=== PATIENT | female | born 1985 | race Hispanic/Latino ===

== ENCOUNTER 2022-01-13 05:35 | Emergency (ER) | payer BC ==
[2022-01-13 06:40] LABS: Absolute Lymphocytes (CBC) 1.8 K/uL (0.7-4.9); Hematocrit 35.5 % (36.0-45.0); Lymphocytes % 20.6 % (15.3-44.8); MCV 87.6 fL (80-100); MPV 7.2 fL (7.6-11.3); RBC Red Blood Cell Count 4.05 M/uL (3.86-4.86)
[2022-01-13] MEDS ORDERED: NA CHLORIDE 0.9% 1,000 ML ONE (06:43)
[2022-01-13] MEDS ORDERED: CEFTRIAXONE 1000 MG/VIAL ONE (06:43)
[2022-01-13] MEDS ORDERED: KETOROLAC 30 MG/ML INJ ONE (06:43)
[2022-01-13] MEDS ORDERED: MORPHINE 4 MG/ML SYR ONE ×2 (06:43→09:32)
[2022-01-13] MEDS ORDERED: ONDANSETRON 4 MG/2 ML VIAL ONE ×2 (06:43→09:33)
[2022-01-13] MEDS ORDERED: NA CHLORIDE 0.9% 50 ML ONE (06:44)
[2022-01-13 06:59] LABS: Albumin 3.1 g/dL (3.4-5.0); Bilirubin Total 0.2 mg/dL (0.2-1.0); Potassium 3.7 mmol/L (3.5-5.1); Protein, Total 6.9 g/dL (6.4-8.2)
[2022-01-13] MEDS ORDERED: levoFLOXacin 250 MG TAB ONE (07:22)
[2022-01-13 07:50] LABS: Urine Blood 2+ (Negative); Urine Glucose Negative (Negative); Urine Protein Negative (Negative); Urine pH 5.5 (5.0-7.0)
[2022-01-13 08:10] LABS: Urine Bacteria <20 /HPF (<20)
--- NOTE | 2022-01-13 08:33 | RAD REPORT ---
EXAM DESCRIPTION: CT - Abdomen Pelvis W Contrast - 01/13/2022 7:58 am CLINICAL HISTORY: Flank pain, kidney stone suspected COMPARISON: No comparisons TECHNIQUE: Biphasic, helical CT imaging of the abdomen and pelvis was performed following 100 ml non -ionic IV contrast. No oral contrast administered. All CT scans are performed using dose optimization technique as appropriate and may include automated exposure control or mA/KV adjustment according to patient size. FINDINGS: No suspicious findings in the lung bases. The liver, spleen, and pancreas show no suspicious focal findings. Liver shows a diffuse fatty infilt ration pattern. Cholecystectomy clips are present with no biliary tree dilatation. Renal function is symmetric and without evidence for delay. No pyelonephritis or acute renal parenchy mal process seen. There is fullness of the left renal pelvis without ureter or calyx dilatation. No r enal parenchymal calculi. No calcifications in the proximal collecting systems. There is a 5 millimet er calcification along the floor the pelvis that is suspected to be a right UVJ stone or possible kevin dder calculus near the right UVJ. Pelvic floor detail is limited due to body habitus affects. If this is a calculus, it does not cause any delayed or asymmetric renal function. No other possible blad viri finding seen. No adrenal abnormalities. IUD is in place. No uterine abnormality or ovarian abnormality seen. No dilated bowel loops or bowel wall thickening. Appendix is not clearly defined. No evidence for gee endicitis. No free air, free fluid or inflammatory stranding. No mass or bulky lymphadenopathy. Liliam ent has a 6 centimeter diameter ventral hernia just superior to the umbilicus along with a 6 centimet er periumbilical hernia. The hernias contain only fat. No congested or edematous fat seen. No bowel i n proximity to the hernias. No suspicious bony findings. IMPRESSION: A 5 millimeter calcification is present along the floor the pelvis suspected to be right UVJ/bladder calculus. There is no right-sided hydronephrosis. If the 5 mm calcification is a true calculus, there is no resulting delayed or asymmetric function of the right kidney. Diffuse fatty infiltration of the liver with no focal liver abnormality. Cholecystectomy clips are pr esent with no biliary tree dilatation. Periumbilical and supraumbilical fat only hernias are present with no congested or edematous fat.
--- NOTE | 2022-01-13 09:21 | ER ---
Nurse's Notes [facility] Name: Maria Teresa Douglas Age: 37 yrs Sex: Female : 1985 Arrival Date: 01/13/2022 Time: 05:38 Bed 16 Private MD: Diagnosis: Obesity, unspecified;Unspecified symptoms and signs involving the musculoskeletal system;Dysuria;Low back pain Presentation: 01/13 05:41 Chief complaint: EMS states: Noticed back pain that started 3 days ago after ke1 metronidazole prescription for vaginitis. Coronavirus screen: Vaccine status: Patient reports receiving the 2nd dose of the covid vaccine. Ebola Screen: No symptoms or risks identified at this time. 05:41 Method Of Arrival: EMS ke1 05:47 Initial Sepsis Screen: Does the patient meet any 2 criteria? No. Patient's initial ke1 sepsis screen is negative. Does the patient have a suspected source of infection? No. Patient's initial sepsis screen is negative. Risk Assessment: Do you want to hurt yourself or someone else? Patient reports no desire to harm self or others. Onset of symptoms. 05:47 Acuity: ORTIZ 3 ke1 Triage Assessment: 05:51 General: Appears in no apparent distress. Behavior is calm, appropriate for age. Pain: ke1 Complains of pain in Left flank. GI: Abdomen is obese. Musculoskeletal: Circulation, motion, and sensation intact. Capillary refill < 3 seconds. 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 - Social history:: Smoking status: Reported history of juuling and/or vaping. - Family history:: not pertinent. Screenin:50 Abuse screen: Denies threats or abuse. Nutritional screening: No deficits noted. ke1 Tuberculosis screening: No symptoms or risk factors identified. Fall Risk No fall in past 12 months (0 pts). No secondary diagnosis (0 pts). No IV (0 pts). Ambulatory Aid- None/Bed Rest/Nurse Assist (0 pts). Gait- Normal/Bed Rest/Wheelchair (0 pts) Mental Status- Oriented to own ability (0 pts). Total Bess Fall Scale indicates No Risk (0-24 pts). Assessment: 06:36 Neuro: Level of Consciousness is awake, alert, Oriented to person, place, time, ke1 situation. Respiratory: Respiratory effort is even, unlabored, Respiratory pattern is regular, symmetrical. 07:26 Reassessment: No changes from previously documented assessment. 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 08:54 Reassessment: No changes from previously documented assessment. Patient and/or family kr3 updated on plan of care and expected duration. Pain level reassessed. 09:44 Reassessment: No changes from previously documented assessment. Patient and/or family kr3 updated on plan of care and expected duration. Pain level reassessed. 10:12 Reassessment: No changes from previously documented assessment. Patient states feeling kr3 better. Vital Signs: 05:47 BP 130 / 68; Pulse 98; Resp 16; Temp 98.6(O); Pulse Ox 96% on R/A; Weight 161.03 kg; ke1 Height 5 ft. 2 in. (157.48 cm); Pain 8/10; 07:42 BP 126 / 68; Pulse 90; Resp 17; Pulse Ox 96% on R/A; ll1 08:52 BP 100 / 60; Pulse 89; Resp 18; Pulse Ox 96% ; kr3 09:52 BP 106 / 68; Pulse 88; Resp 16; Pulse Ox 98% ; kr3 05:47 Body Mass Index 64.93 (161.03 kg, 157.48 cm) ke1 ED Course: 05:38 Patient arrived in ED. lp1 05:41 Kolby Rivera, JUSTIN is Primary Nurse. ke1 05:44 Abelardo Higgins MD is Attending Physician. krzysztof 05:50 Triage completed. ke1 05:51 Arm band placed on. ke1 05:51 Bed in low position. Call light in reach. ke1 06:36 Inserted saline lock: 20 gauge in right antecubital area, using aseptic technique. ke1 07:48 Attending Physician role handed off by Abelardo Higgins MD kdr 07:48 Ascencion Morales MD is Attending Physician. kdr 08:00 CT Abd/Pelvis - IV Contrast Only In Process Unspecified. EDMS 08:10 Urine Microscopic Only Sent. kr3 10:13 IV discontinued, intact, bleeding controlled, No redness/swelling at site. Pressure kr3 dressing applied. 10:14 No provider procedures requiring assistance completed. kr3 Administered Medications: 06:49 Drug: Zofran (Ondansetron) 4 mg Route: IVP; Site: left antecubital; ke1 07:41 Follow up: Response: No adverse reaction ll1 06:50 Drug: NS 0.9% 1000 ml Route: IV; Rate: 1 bolus; Site: left antecubital; ke1 10:17 Follow up: Response: No adverse reaction; IV Status: Completed infusion; IV Intake: kr3 1000ml 06:50 Drug: Rocephin (cefTRIAXone) 1 grams Route: IV; Rate: per protocol; Site: left ke1 antecubital; 07:41 Follow up: Response: No adverse reaction; IV Status: Completed infusion; IV Intake: [id number] 06:50 Drug: Ketorolac 30 mg Route: IVP; Site: left antecubital; ke1 07:41 Follow up: Response: No adverse reaction kr3 06:50 Drug: morphine 4 mg Route: IVP; Infused Over: 4 mins; Site: left antecubital; ke1 07:41 Follow up: Response: No adverse reaction kr3 07:19 Drug: LevaQUIN (levofloxacin) 500 mg Route: PO; kr3 07:41 Follow up: Response: No adverse reaction kr3 09:44 Drug: morphine 4 mg Route: IVP; Infused Over: 4 mins; Site: left antecubital; kr3 10:12 Follow up: Response: No adverse reaction kr3 09:44 Drug: Zofran (Ondansetron) 4 mg Route: IVP; Site: left antecubital; kr3 10:11 Follow up: Response: No adverse reaction kr3 Medication: 10:16 VIS not applicable for this client. kr3 Intake: 07:41 IV: 50ml; Total: 50ml. ll1 10:17 IV: 1000ml; Total: 1050ml. kr3 Outcome: 09:20 Discharge ordered by . kdr 10:14 Discharged to home ambulatory, with family. kr3 10:14 Condition: stable 10:14 Discharge instructions given to patient, Instructed on discharge instructions, follow up and referral plans. no drinking with medication, medication usage, Demonstrated understanding of instructions, follow-up care, medications, Prescriptions given X 2. 10:16 Patient left the ED. kr3 Signatures: Dispatcher [employer] EDMS Abelardo Higgins MD MD cha Rittger, Kevin, MD MD kdr Pena, Laura RN RN lp1 Enrique Rick RN RN ll1 Kolby Rivera RN RN ke1 Zuleima Grossman RN RN kr3 Corrections: (The following items were deleted from the chart) 10:13 10:13 IV discontinued, kr3 kr3
--- NOTE | 2022-01-13 09:21 | EDPHYS ---
Physician Documentation [facility] Name: Maria Teresa Douglas Age: 37 yrs Sex: Female : 1985 Arrival Date: 01/13/2022 Time: 05:38 Bed 16 Private MD: ED Physician Ascencion Morales HPI: 01/13 06:24 This 37 yrs old Female presents to ER via EMS with complaints of Back Pain. krzysztof 06:24 The patient presents with pain and decreased range of motion. The symptoms are located krzysztof in the left mid back. Onset: The symptoms/episode began/occurred 3 day(s) ago. The pain does not radiate. Associated signs and symptoms: The patient has no apparent associated signs or symptoms. The problem was sustained from unknown cause. Severity of symptoms: At their worst the symptoms were mild, moderate, in the emergency department the symptoms are unchanged. The patient has not experienced similar symptoms in the past. 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 - Social history:: Smoking status: Reported history of juuling and/or vaping. - Family history:: not pertinent. ROS: 06:24 Constitutional: Negative for fever, chills, and weight loss, Eyes: Negative for injury, krzysztof pain, redness, and discharge, ENT: Negative for injury, pain, and discharge, Neck: Negative for injury, pain, and swelling, Cardiovascular: Negative for chest pain, palpitations, and edema, Respiratory: Negative for shortness of breath, cough, wheezing, and pleuritic chest pain, Abdomen/GI: Negative for abdominal pain, nausea, vomiting, diarrhea, and constipation, : Negative for injury, bleeding, discharge, and swelling, MS/Extremity: Negative for injury and deformity, Skin: Negative for injury, rash, and discoloration, Neuro: Negative for headache, weakness, numbness, tingling, and seizure, Psych: Negative for depression, anxiety, suicide ideation, homicidal ideation, and hallucinations, Allergy/Immunology: Negative for hives, rash, and allergies, Endocrine: Negative for neck swelling, polydipsia, polyuria, polyphagia, and marked weight changes, Hematologic/Lymphatic: Negative for swollen nodes, abnormal bleeding, and unusual bruising. 06:24 Back: Positive for decreased range of motion, flank pain, on the left. Exam: 06:24 Constitutional: This is a well developed, well nourished patient who is awake, alert, krzysztof and in no acute distress. Head/Face: Normocephalic, atraumatic. Eyes: Pupils equal round and reactive to light, extra-ocular motions intact. Lids and lashes normal. Conjunctiva and sclera are non-icteric and not injected. Cornea within normal limits. Periorbital areas with no swelling, redness, or edema. ENT: Nares patent. No nasal discharge, no septal abnormalities noted. Tympanic membranes are normal and external auditory canals are clear. Oropharynx with no redness, swelling, or masses, exudates, or evidence of obstruction, uvula midline. Mucous membranes moist. Neck: Trachea midline, no thyromegaly or masses palpated, and no cervical lymphadenopathy. Supple, full range of motion without nuchal rigidity, or vertebral point tenderness. No Meningismus. Chest/axilla: Normal chest wall appearance and motion. Nontender with no deformity. No lesions are appreciated. Cardiovascular: Regular rate and rhythm with a normal S1 and S2. No gallops, murmurs, or rubs. Normal PMI, no JVD. No pulse deficits. Respiratory: Lungs have equal breath sounds bilaterally, clear to auscultation and percussion. No rales, rhonchi or wheezes noted. No increased work of breathing, no retractions or nasal flaring. Abdomen/GI: Soft, non-tender, with normal bowel sounds. No distension or tympany. No guarding or rebound. No evidence of tenderness throughout. Skin: Warm, dry with normal turgor. Normal color with no rashes, no lesions, and no evidence of cellulitis. MS/ Extremity: Pulses equal, no cyanosis. Neurovascular intact. Full, normal range of motion. Neuro: Awake and alert, GCS 15, oriented to person, place, time, and situation. Cranial nerves II-XII grossly intact. Motor strength 5/5 in all extremities. Sensory grossly intact. Cerebellar exam normal. Normal gait. Psych: Awake, alert, with orientation to person, place and time. Behavior, mood, and affect are within normal limits. 06:24 Back: pain, that is mild, that is moderate, ROM is painful, with rotation to the left, with flexion, normal spinal alignment noted, CVA tenderness, that is mild, is noted on the left, muscle spasm, is not present. Vital Signs: 05:47 BP 130 / 68; Pulse 98; Resp 16; Temp 98.6(O); Pulse Ox 96% on R/A; Weight 161.03 kg; ke1 Height 5 ft. 2 in. (157.48 cm); Pain 8/10; 07:42 BP 126 / 68; Pulse 90; Resp 17; Pulse Ox 96% on R/A; ll1 08:52 BP 100 / 60; Pulse 89; Resp 18; Pulse Ox 96% ; kr3 09:52 BP 106 / 68; Pulse 88; Resp 16; Pulse Ox 98% ; kr3 05:47 Body Mass Index 64.93 (161.03 kg, 157.48 cm) ke1 MDM: 05:44 Patient medically screened. [facility] 07:07 Differential diagnosis: chronic back pain, Fracture Obesity Peptic Ulcer ruptured disc, krzysztof sprain, Ureterolithiasis. Data reviewed: vital signs, nurses notes, lab test result(s), radiologic studies, CT scan. 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 Counseling: I had a detailed discussion with the patient and/or guardian regarding: the historical points, exam findings, and any diagnostic results supporting the discharge/admit diagnosis, lab results, radiology results, the need for outpatient follow up, for definitive care, a family practitioner. 01/13 06:21 Order name: CBC with Diff; Complete Time: 06:57 krzysztof 01/13 06:21 Order name: CMP; Complete Time: 07:06 krzysztof 01/13 06:21 Order name: Lipase; Complete Time: 07:06 krzysztof 01/13 07:50 Order name: Urine Dipstick-Ancillary; Complete Time: 08:09 EDMS 01/13 07:55 Order name: Urine Microscopic Only; Complete Time: 09:11 ss 01/13 08:11 Order name: Urine --Ancillary (enter results) eb 01/13 06:21 Order name: CT Abd/Pelvis - IV Contrast Only; Complete Time: 09:11 krzysztof 01/13 08:14 Order name: Urine Culture [facility] 01/13 06:21 Order name: IV Saline Lock; Complete Time: 06:50 [facility] 01/13 06:21 Order name: Labs collected and sent; Complete Time: 06:50 [facility] 01/13 06:21 Order name: Urine Dipstick-Ancillary (obtain specimen); Complete Time: 07:41 [facility] 01/13 06:21 Order name: Urine Test (obtain specimen); Complete Time: 07:41 [facility] Administered Medications: 06:49 Drug: Zofran (Ondansetron) 4 mg Route: IVP; Site: left antecubital; ke1 07:41 Follow up: Response: No adverse reaction ll1 06:50 Drug: NS 0.9% 1000 ml Route: IV; Rate: 1 bolus; Site: left antecubital; ke1 10:17 Follow up: Response: No adverse reaction; IV Status: Completed infusion; IV Intake: kr3 1000ml 06:50 Drug: Rocephin (cefTRIAXone) 1 grams Route: IV; Rate: per protocol; Site: left [facility] antecubital; 07:41 Follow up: Response: No adverse reaction; IV Status: Completed infusion; IV Intake: [id number] 06:50 Drug: Ketorolac 30 mg Route: IVP; Site: left antecubital; ke1 07:41 Follow up: Response: No adverse reaction kr3 06:50 Drug: morphine 4 mg Route: IVP; Infused Over: 4 mins; Site: left antecubital; ke1 07:41 Follow up: Response: No adverse reaction kr3 07:19 Drug: LevaQUIN (levofloxacin) 500 mg Route: PO; kr3 07:41 Follow up: Response: No adverse reaction kr3 09:44 Drug: morphine 4 mg Route: IVP; Infused Over: 4 mins; Site: left antecubital; kr3 10:12 Follow up: Response: No adverse reaction kr3 09:44 Drug: Zofran (Ondansetron) 4 mg Route: IVP; Site: left antecubital; kr3 10:11 Follow up: Response: No adverse reaction kr3 Disposition Summary: 01/13/22 09:20 Discharge Ordered Location: Home kdr Problem: new kdr Symptoms: have improved kdr Condition: Stable kdr Diagnosis - Obesity, unspecified kdr - Unspecified symptoms and signs involving the musculoskeletal system kdr - Dysuria kdr - Low back pain kdr Followup: krzysztof - With: Private Physician - When: 2 - 3 days - Reason: Recheck today's complaints, Continuance of care, Re-evaluation by your physician Discharge Instructions: - Discharge Summary Sheet krzysztof - Dysuria krzysztof - Musculoskeletal Pain krzysztof - Obesity, Adult krzysztof - Obesity, Adult, [id number] [facility] Forms: - Medication Reconciliation Form kdr - Thank You Letter kdr - Antibiotic Education kdr - Prescription Opioid Use kdr Prescriptions: - levofloxacin 500 mg Oral Tablet - take 1 tablet by ORAL route once daily for 7 days; 7 tablet; Refills: 0, [facility] Product Selection Permitted - Tylenol-Codeine #3 300 mg-30 mg Oral - take 2 tablet by ORAL route every 6 hours; 20 tablet; Refills: 0, Product [facility] Selection Permitted Signatures: Dispatcher [employer] Abelardo Ayala MD MD cha Rittger, Kevin, MD MD kdr Ebrottie, Kouassi RN RN ke1 Zuleima Grossman RN RN kr3 Enrique Rick RN ll1
[2022-01-13 10:23] VITALS: TEMP 98.6
[2022-01-13 10:28] VITALS: BP 106/68; O2SAT 98
== END 2022-01-13 10:16 | disposition home or self-care (01) ==
LOC: ER 05:35
DX: M54.50 Low back pain, unspecified (principal); R29.91 Unspecified symptoms and signs involving the musculoskeletal system; R30.0 Dysuria; E66.9 Obesity, unspecified; Z68.44 Body mass index [BMI] 60.0-69.9, adult
CPT/HCPCS: 96365; 96361; 87088; 85025; 87086; 36415; 81025; 83690; 80053; 74177; 96375; 99284; Q9967; J7030; J2405 ×2; 81003; 81015